=== PATIENT | female | born 1990 | race Caucasian/White ===

== ENCOUNTER 2017-10-04 08:16 | Emergency (ER) | payer MEDICAID ==
[~2017-10-04] VITALS: Ht 170.2 cm; Wt 48.8 kg
[~2017-10-04 08:16] MED LIST: NITR100C6 PO
[2017-10-04 08:27] VITALS: BP 117/84
== END 2017-10-04 10:07 | disposition home or self-care (01) ==
LOC: ER 08:17
DX: O20.0 Threatened abortion (principal); Z3A.01 Less than 8 weeks gestation of pregnancy; Z88.1 Allergy status to other antibiotic agents; Z88.0 Allergy status to penicillin
CPT/HCPCS: 36415; 84702; 99283

== ENCOUNTER 2017-10-10 08:21 | Emergency (ER) | payer MEDICAID ==
[~2017-10-10] VITALS: Ht 170.2 cm; Wt 48.7 kg
[2017-10-10] MEDS ORDERED: normal saline 1000ML IV soln IVB ONE (08:35)
[2017-10-10] MEDS ORDERED: ondansetron/PF 4mg/2ml inj IV ONE (08:35)
[2017-10-10 09:24] LABS: CLARITY,URINE SLIGHTLY CLOUDY (Clear); COLOR,URINE YELLOW (Yellow); GLUCOSE, URINE NEGATIVE (Neg); KETONES,URINE NEGATIVE (Neg); LEUKOCYTE ESTERASE ,URINE TRACE (Neg); NITRITES, URINE NEGATIVE (Neg); OCCULT BLOOD,URINE LARGE (Neg); PROTEIN,URINE NEGATIVE (Neg); UROBILINOGEN,URINE 0.2 E.U/dL (0.2-1.0)
[2017-10-10 09:26] LABS: BASOPHILS # (AUTO) 0.1 X10'3 (0-0.2); EOSINOPHILS # (AUTO) 0.5 X10'3 (0-0.9); EOSINOPHILS % (AUTO) 5.9 % (0-6); HEMATOCRIT 40.7 % (35.0-45.0); HEMOGLOBIN 13.8 g/dl (12.0-16.0); LYMPHOCYTES # (AUTO) 1.5 X10'3 (1.1-4.8); LYMPHOCYTES % (AUTO) 17.9 % (21-51); MEAN CORPUSCULAR HEMOGLOBIN 31.6 PG (27.0-31.0); MEAN CORPUSCULAR HGB CONC 33.9 % (33.0-36.5); MEAN CORPUSCULAR VOLUME 93.2 FL (78-98); MEAN PLATELET VOLUME 9.2 FL (7.4-10.4); MONOCYTES # (AUTO) 0.4 X10'3 (0-0.9); MONOCYTES % (AUTO) 4.8 % (2-12); NEUTROPHILS # (AUTO) 5.7 X10'3 (1.8-7.7); NEUTROPHILS % (AUTO) 70.4 % (42-75); PLATELET COUNT 307 X10'3 (140-440); RED BLOOD COUNT 4.37 X10'6 (4.20-5.60); RED CELL DISTRIBUTION WIDTH 12.4 % (11.5-14.5); WHITE BLOOD COUNT 8.1 X10'3 (4.5-11.0)
[2017-10-10 09:28] LABS: UA COLLECTION TYPE CLN CATCH MIDSTREAM
[2017-10-10 09:33] LABS: ALANINE AMINOTRANSFERASE 18 U/L (12-78); ALBUMIN 4.4 G/DL (3.4-5.0); ALBUMIN/GLOBULIN RATIO 1.2 (1.1-1.5); ALKALINE PHOSPHATASE 62 IU/L (46-116); ANION GAP 11 (8-16); ASPARTATE AMINO TRANSFERASE 14 U/L (10-37); BILIRUBIN,TOTAL 0.6 MG/DL (0.1-1.0); BLOOD UREA NITROGEN 15 MG/DL (7-18); BUN/CREATININE RATIO 18.1 (6.6-38.0); CALCIUM 9.8 MG/DL (8.5-10.1); CHLORIDE 103 MMOL/L (99-107); CREATININE 0.83 MG/DL (0.40-0.90); GLUCOSE 101 MG/DL (70-104); POTASSIUM 3.4 MMOL/L (3.5-5.1); SODIUM 140 MMOL/L (135-145); TOTAL CARBON DIOXIDE 26.4 MMOL/L (24-32); TOTAL PROTEIN 8.2 G/DL (6.4-8.2); eGFR 83 ML/MIN
[2017-10-10 09:37] LABS: BACTERIA,URINE 2+ /HPF (Neg); MUCUS STRANDS MANY /LPF (Neg); SQUAMOUS EPITHELIAL CELL,UR FEW /LPF (FEW)
[2017-10-10 09:58] LABS: LIPASE 84 U/L (73-393)
[2017-10-10 09:59] LABS: BETA HCG,QUANTITATIVE 4843 mIU/ml
[2017-10-10 10:04] VITALS: BP 133/75
[2017-10-10] MEDS ORDERED: CEPH-571 PO (10:06)
== END 2017-10-10 10:27 | disposition home or self-care (01) ==
LOC: ER 08:22
DX: O20.0 Threatened abortion (principal); N39.0 Urinary tract infection, site not specified; Z88.0 Allergy status to penicillin; Z88.1 Allergy status to other antibiotic agents; Z79.899 Other long term (current) drug therapy; Z3A.01 Less than 8 weeks gestation of pregnancy
CPT/HCPCS: 36415; 76801; 80053; 81001; 83690; 84702; 85025; 87088; 99285

== ENCOUNTER 2018-11-18 15:30 | Emergency (ER) | payer MEDICAID ==
[~2018-11-18] VITALS: Ht 170.2 cm; Wt 80.0 kg
[~2018-11-18 15:30] MED LIST changes: +CEPH-571 PO
[2018-11-18 16:25] LABS: CLARITY,URINE CLEAR (Clear); COLOR,URINE STRAW (Yellow); GLUCOSE, URINE NEGATIVE (Neg); KETONES,URINE NEGATIVE (Neg); LEUKOCYTE ESTERASE ,URINE SMALL (Neg); NITRITES, URINE NEGATIVE (Neg); OCCULT BLOOD,URINE LARGE (Neg); PH,URINE 6.5 (4.8-8.0); PROTEIN,URINE NEGATIVE (Neg); UROBILINOGEN,URINE 0.2 E.U/dL (0.2-1.0)
[2018-11-18 16:28] LABS: URINE HCG POSITIVE (NEG)
[2018-11-18 16:30] LABS: UA COLLECTION TYPE CLN CATCH MIDSTREAM
[2018-11-18 16:34] LABS: SQUAMOUS EPITHELIAL CELL,UR FEW /LPF (FEW)
[2018-11-18 16:35] LABS: BACTERIA,URINE 2+ /HPF (Neg); WBC,URINE 0-4 /HPF (0-4)
--- NOTE | 2018-11-18 16:45 | NUR ---
Pt started vomiting and reports a migraine that is causing nausea and vomiting.
--- NOTE | 2018-11-18 16:56 | NUR ---
PT REPORTS SHE GETS MIGRAINES WHEN SHE GETS UTI'S AND THE MIGRAINES CAUSE NAUSEA AND VOMITTING, PT REPORTS HAVING N/V IN FIRST TRIMESTER BUT THAT HAS RESOLVED, PT INSTRUCTED TO FOLLOW UP WITH OBGYN REGARDING HER CHRONIC HEADACHES AND N/V THAT COINCIDE WITH SPARKS, PT IS AGREEABLE TO GET TREATMENT OF UTI AND FOLLOW UP WITH OBGYN FOR MANAGEMENT OF HEADACHES DURING , MATIAS PA AWARE OF PT STATUS.
[2018-11-18] MEDS ORDERED: NITR100C PO (16:59)
[2018-11-18 17:14] VITALS: BP 111/78
== END 2018-11-18 17:16 | disposition home or self-care (01) ==
LOC: ER 15:30
DX: O23.42 Unspecified infection of urinary tract in pregnancy, second trimester (principal); R31.9 Hematuria, unspecified; O99.342 Other mental disorders complicating pregnancy, second trimester; F41.9 Anxiety disorder, unspecified; Z88.0 Allergy status to penicillin; Z88.1 Allergy status to other antibiotic agents; Z79.899 Other long term (current) drug therapy; Z3A.21 21 weeks gestation of pregnancy
CPT/HCPCS: 81001; 81025; 87088; 99283